=== PATIENT | male | born 1960 ===

== ENCOUNTER 2016-08-05 07:43 | Day surgery (SDC) | payer OTHER ==
[2016-08-05 08:11] VITALS: BMI 31.9
[2016-08-05] MEDS ORDERED: Propofol 10 mg/ml Inj (20 ML) ONE ×3 (09:29→10:06)
[2016-08-05] MEDS ORDERED: Lactated Ringer's 500 ML IV ONE (09:30)
[2016-08-05] MEDS ORDERED: Simethicone 40 mg/0.6 ml Liquid (30 ml) ONE (09:39)
[2016-08-05 10:25] VITALS: TEMP 97.5
[2016-08-05 10:36] VITALS: O2SAT 96
[2016-08-05 10:44] VITALS: BP 113/71; PULSE 65; RESP 18
== END 2016-08-05 10:41 | disposition home or self-care (01) ==
LOC: C.ENDO 07:43
PROVIDERS: ATTEND Internal Medicine Gastroenterology
DX: K64.8 Other hemorrhoids (principal)
CPT/HCPCS: 45378; J2704; J7120